=== PATIENT | female | born 1990 | race African-American/Black ===

== ENCOUNTER 2021-12-26 16:59 | Emergency (ER) | payer BC, MEDICAID ==
[~2021-12-26] VITALS: Ht 162.6 cm; Wt 55.3 kg
--- NOTE | 2021-12-26 17:10 | NUR ---
Pt called to be triaged but pt went to cafeteria to get a snack.
[2021-12-26 17:17] VITALS: BP_SYST 123
--- NOTE | 2021-12-26 17:17 | NUR ---
BROUGHT BACK TO BED #8 AND TRIAGED. REPORT GIVEN TO SAVANNAH
--- NOTE | 2021-12-26 17:30 | NUR ---
ER at bedside examining patient.
[2021-12-26 17:59] LABS: BASOPHILS # (AUTO) 0.1 K/uL (0.0-0.2); BASOPHILS % (AUTO) 0.7 % (0.0-2.0); EOSINOPHILS % (AUTO) 0.3 % (0.0-4.0); HEMATOCRIT 37.2 % (36-48); HEMOGLOBIN 12.3 g/dL (12.0-16.0); LYMPHOCYTES # (AUTO) 1.3 K/uL (1.0-5.5); MEAN CORPUSCULAR HEMOGLOBIN 31 pg (27-31); MEAN CORPUSCULAR HGB CONC 33 % (32-36); MEAN CORPUSCULAR VOLUME 93 fL (79.0-98.0); MONOCYTES # (AUTO) 0.3 K/uL (0.0-1.0); NEUTROPHILS # (AUTO) 6.6 K/uL (1.8-7.7); PLATELET COUNT (AUTO) 238 K/uL (130-430); RED BLOOD CELL COUNT(AUTO) 4.02 MIL/uL (4.2-6.2); RED CELL DISTRIBUTION WIDTH 12.9 % (9.0-15.0); WHITE BLOOD COUNT (AUTO) 8.3 K/uL (4.8-10.8)
--- NOTE | 2021-12-26 18:06 | NUR ---
# 20 gauge angiocath placed to left AC. Use of asceptic technique. Opsite placed over site. Blood return noted. Flushed with 10 cc of normal saline. No evidence of infiltration noted. Patient tolerated well.
[2021-12-26 18:13] LABS: ANION GAP 15 (5-15); CALCIUM 8.2 mg/dL (8.4-11.0); CHLORIDE 92 mmol/L (98-107); CREATININE 1.49 mg/dL (0.55-1.30); SODIUM SERUM 128 mmol/L (136-145); UREA NITROGEN, BLOOD 24 mg/dL (8-21)
[2021-12-26 18:14] LABS: ALANINE AMINOTRANSFERASE 29 U/L (12-78); ALBUMIN 3.3 g/dL (3.4-4.8); AMYLASE 26 U/L (0-100); ASPARTATE AMINOTRANSFERASE 27 U/L (10-37); LIPASE 22 U/L (73-393); TOTAL BILIRUBIN 0.6 mg/dL (0.0-1.0)
[2021-12-26 18:20] LABS: GFR AFRICAN AMERICAN 52 mL/min (>90)
[2021-12-26 18:30] LABS: GLUCOSE 738 mg/dL (70-99)
[2021-12-26 18:39] LABS: ACETONE, SERUM TRACE (NEGATIVE)
[2021-12-26] MEDS ORDERED: INSULIN REGULAR, HUMAN 10 UNITS/0.1 ML INJ IVP ONE ×3 (18:45→21:00)
--- NOTE | 2021-12-26 19:24 | NUR ---
Report given to Lien ESCALANTE
[2021-12-26] MEDS ORDERED: NACL 0.9% 2,000 ML IV STA (19:30)
--- NOTE | 2021-12-26 19:30 | NUR ---
[facility] BRONSON REPORT FROM [facility]ES. C/O HIGH BG OG 738/LAB DRAW [id number]. HX; DM. COTINUED OBSERVATION.
--- NOTE | 2021-12-26 19:50 | NUR ---
BG-[address] RICKETTS FOR REG INSULIN 1O U IVP GIVEN
--- NOTE | 2021-12-26 20:50 | NUR ---
BG- 397 REG INSULIN 8U IVP GIVEN
[2021-12-26] MEDS ORDERED: NACL 0.9% 1,000 ML IV ONE (21:00)
--- NOTE | 2021-12-26 21:50 | NUR ---
BG 270 DR RICKETTS MADE AWARE PT READY FOR D/C TO HOME. PT VERBALIZES UNDERSTANDING OF AFTERCARE/ RX. IV D/C'D TO LEFT A/C WITH CATH INTACT AND PRESSURE DRESSING APPLIED. VSS. PT A/O X4 WITH CLEAR SPEECH. AMB TO LOBBY WITH STEADY/ EVEN GAIT AND ALL PAPERWORK IN HAND. PT SAYS "FEELS 'BETTER"
[2021-12-26 22:16] VITALS: BP_SYST 115
== END 2021-12-26 22:16 | disposition home or self-care (01) ==
LOC: SED 16:59
DX: E11.65 Type 2 diabetes mellitus with hyperglycemia (principal); R73.9 Hyperglycemia, unspecified; R53.1 Weakness; Z79.899 Other long term (current) drug therapy
CPT/HCPCS: 99284; 96374; 96361; 96375; 80053; 82009; 82150; 82962; 84703; 83690; 85025; 36415; 96372; 83605; J7030; J1815